=== PATIENT | female | born 1990 | race Caucasian/White ===

== ENCOUNTER 2016-09-09 19:33 | Emergency (ER) | payer SELFPAY ==
[2016-09-09] MEDS ORDERED: BACITRACIN 1 APP/PKT PKT TOPICAL ONE (20:40)
--- NOTE | 2016-09-09 20:59 | ER PHYSICIAN DOCUMENTATION ---
Physician Documentation [facility] Name:Adilia Lance Age:26 yrs Sex:Female :1990 Arrival Date:09/09/2016 Time:19:33 Bed1 Private MD: Cain Harper Disposition: 09/09/16 20:33 Discharged to Home/Self Care. Impression: Foot Laceration - : 1.5 cm; Simple Repair (by MD), Tendon Injury - / Laceration. - Condition is Good. - Discharge Instructions: LACERATION, Foot, TENDON LACERATION - LACERATION, Tendon. - Medical Reconciliation form form. - Follow up: Real Kitchen MD, Han Do, ; When: 2 - 3 days; Reason: Recheck today's complaints, Continuance of care. - Problem is new. - Symptoms have improved. - Notes: Keep clean, dry and covered. Follow up with Dr. Kitchen or Dr. Do in 2 - 3 days for recheck and Tendon Repair. HPI: 09/09 20:00 This 26 yrs old Female presents to ER via Walk In with complaints of cd Laceration To Foot - Left. 20:00 The patient has a laceration related to: cooking, from a knife, dropped on left foot, cd occurred at home, and. The laceration(s) is(are) located on the dorsum of right foot. Onset: The symptom(s)/episode began/occurred acutely, just prior to arrival. Associated signs and symptoms: The patient has no apparent associated signs or symptoms. Historical: - Allergies: No known drug Allergies; - Home Meds: 1. None - Tetanus: < 10 years unknown. - Ebola Screening: : No symptoms or risks identified at this time. . - Immunization history: Flu Vaccine < 1 year. - Social history: Smoking status: Patient states was never smoker of tobacco. ROS: 20:42 MS/extremity: Positive for injury or acute deformity, laceration, Negative for cd paresthesias, tingling. 20:42 Skin: Positive for laceration(s), of the dorsum of right foot. 20:42 All other systems are negative. Exam: 20:43 Musculoskeletal/extremity: Extremities: grossly normal except: noted in the left first cd toe: ROM: no acute changes, Circulation is intact in all extremities. Sensation intact. Tendon exam: postive for partial tendon laceration left first toe. 20:43 Constitutional: The patient appears alert, awake, well developed, well nourished, anxious. 20:43 Skin: Appearance: normal except for affected area, injury, laceration(s), the wound is approximately 1.5 cm(s), with a depth of 0.5 cm(s), of the dorsum of right foot. Vital Signs: 19:41 BP 121 / 69 LA Sitting (auto/reg); Pulse 66 LA; Resp 14 S; Temp 99.3(O); Pulse Ox 93% em3 on R/A; Weight 49.44 kg (R); Height 5 ft. 0 in. (152.40 cm) (R); Pain 4/10; 20:54 BP 123 / 76; Pulse 77; Resp 16; Pulse Ox 98% on R/A; Pain 1/10; mk4 19:41 Body Mass Index 21.29 (49.44 kg, 152.40 cm) em3 Laceration: 20:45 Wound Repair of 1.5cm ( 0.6in ) subcutaneous laceration to dorsum of right foot. Linear cd shaped.. Minimal contamination.. Minimal bleeding noted.. Distal neuro/vascular/tendon intact. Anesthesia: Wound infiltrated with 2 mls of 2% lidocaine. Wound prep: Moderate cleansing with hibiclenz. Skin closed with 6 5-0 Ethilon using Interrupted sutures. Dressed with Bacitracin, bandaid, Dash Wrap. Patient tolerated well. MDM: 20:30 Counseling: I had a detailed discussion with the patient and/or guardian regarding: the cd historical points, exam findings, and any diagnostic results supporting the discharge/admit diagnosis, the need for outpatient follow up, for a recheck, for a referral to a specialist, a orthopedic surgeon, to return to the emergency department if symptoms worsen or persist or if there are any questions or concerns that arise at home. 20:31 Patient medically screened. cd 20:31 Physician consultation: DO Real Fischer MD was called at 20:30, was cd contacted at 20:30, regarding consult, patient's condition, outpatient follow-up, in 2-3 days, and will see patient in office, in 2-3 days. 20:47 Differential diagnosis: superficial laceration, tendon injury. Data reviewed: vital cd signs, nurses notes, old medical records, and as a result, I will discharge patient, initiate a consult, with an orthopedic surgeon. Dispensed Medications: 07:50 Drug: EMLA Lidocaine 2.5% - Prilocaine 2.5% 1 application; Route: Topical; Infused mk4 Over: 15 mins; Site: wound; Signatures: Cain Vaughn MD MD cd King, Melody mk4
--- NOTE | 2016-09-09 20:59 | ER NURSING DOCUMENTATION ---
Nurse's Notes [facility] Name:Adilia Lance Age:26 yrs Sex:Female :1990 Arrival Date:09/09/2016 Time:19:33 Bed1 Private MD: Diagnosis:Foot Laceration-: 1.5 cm; Simple Repair (by MD);Tendon Injury-/ Laceration Presentation: 09/09 19:35 Presenting complaint: Patient states: Right foot laceration on top of foot. States was mk4 cooking dinner and dropped a sharp knife. Transition of care: Home. Complicating Factors: There are no complicating factors for this patient. Notified ED Physician of Dr. Vaughn notified. 19:35 Method Of Arrival: Walk In [facility] 19:35 Acuity: ISREAL 4 4 Triage Assessment: 19:35 General: Appears in no apparent distress, Behavior is cooperative. Pain: Complains of 4 pain in dorsum of right foot Pain does not radiate. EENT: No deficits noted. Neuro: No deficits noted. Cardiovascular: Chest pain is denied. Respiratory: No deficits noted. Derm: No deficits noted. Musculoskeletal: Circulation, motion, and sensation intact Capillary refill < 3 seconds Range of motion intact in all extremities. Injury Description: Laceration sustained to dorsum of right foot is clean, not bleeding, was sustained less than 30 minutes ago. is bleeding no active bleeding noted. Historical: - Allergies: No known drug Allergies; - Home Meds: 1. None - Tetanus: < 10 years unknown. - Ebola Screening: : No symptoms or risks identified at this time. . - Immunization history: Flu Vaccine < 1 year. - Social history: Smoking status: Patient states was never smoker of tobacco. Screenin:35 Infectious Disease Risk None. Abuse screen: Denies threats or abuse. Nutritional 4 screening: No deficits noted. Assessment: 19:35 See Triage Assessment done by same RN. 4 Vital Signs: 19:41 BP 121 / 69 LA Sitting (auto/reg); Pulse 66 LA; Resp 14 S; Temp 99.3(O); Pulse Ox 93% em3 on R/A; Weight 49.44 kg (R); Height 5 ft. 0 in. (152.40 cm) (R); Pain 4/10; 20:54 BP 123 / 76; Pulse 77; Resp 16; Pulse Ox 98% on R/A; Pain 1/10; mk4 19:41 Body Mass Index 21.29 (49.44 kg, 152.40 cm) em3 ED Course: 19:35 Patient arrived in ED. em3 19:42 Valuables Remains with patient Patient has correct armband on for positive em3 identification. Bed in low position. Call light in reach. 19:55 Julissa Apodaca is Primary Nurse. mk4 19:59 Triage completed. mk4 20:08 Wound care to laceration was cleaned with soap and water, Patient tolerated well. mk4 20:31 Cain Vaughn MD is Attending Physician. cd 20:32 Real Kitchen MD, Han Do DO is Referral Physician. cd Administered Medications: 07:50 Drug: EMLA Lidocaine 2.5% - Prilocaine 2.5% 1 application; Route: Topical; Infused mk4 Over: 15 mins; Site: wound; Outcome: 20:33 Discharge ordered by MD. cd 20:54 Discharged to home ambulatory. mk4 20:54 Condition: good 20:54 Discharge Assessment: Patient awake, alert and oriented x 3. No cognitive and/or functional deficits noted. Patient verbalized understanding of disposition instructions. Patient awake and alert. 20:54 Discharge instructions given to patient, Instructed on discharge instructions, follow up and referral plans. Demonstrated understanding of instructions. 20:58 Patient left the ED. mk4 09/10 13:35 Discharge F/U Call: Unable to reach: no answer lc Signatures: Joan Hector, VERNON RN Cain Kennedy MD MD cd Meiklejohn, Eric em3 Julissa Apodaca mk4
== END 2016-09-09 20:58 | disposition home or self-care (01) ==
LOC: ER 19:33
DX: S91.311A Laceration without foreign body, right foot, initial encounter (principal); S96.921A Laceration of unspecified muscle and tendon at ankle and foot level, right foot, initial encounter; W20.8XXA Other cause of strike by thrown, projected or falling object, initial encounter; W26.0XXA Contact with knife, initial encounter; Y92.010 Kitchen of single-family (private) house as the place of occurrence of the external cause; Y93.G3 Activity, cooking and baking
CPT/HCPCS: 12001; 99283